=== PATIENT | female | born 1960 | race Caucasian/White ===

== ENCOUNTER → 2023-04-12 07:48 | Outpatient (REF) | payer OTHER, SELFPAY | LOC: HWWDC 07:48 | PROVIDERS: ATTENDING PHYSICIAN Obstetrics & Gynecology; FAMILY PHYSICIAN Family Medicine | DX: Z12.31 Encounter for screening mammogram for malignant neoplasm of breast (principal) | CPT/HCPCS: 77063; 77067 ==

== ENCOUNTER → 2023-08-07 14:55 | Outpatient (REF) | payer OTHER, SELFPAY | LOC: HWRAD 14:55 | PROVIDERS: ATTENDING PHYSICIAN Family Medicine | DX: E04.1 Nontoxic single thyroid nodule (principal) | CPT/HCPCS: 76536 ==

== ENCOUNTER 2023-09-18 06:40 | Day surgery (SDC) | payer OTHER, SELFPAY ==
[2023-09-13 08:44] LABS: Hematocrit 40.9 % (37.0-47.0); Hemoglobin 13.7 g/dL (12.0-16.0); Mean Corp Hgb Conc. 33.5 g/dL (33.0-37.0); Mean Corpuscular Hgb 32.3 pg (27.0-31.0); Mean Corpuscular Volume 96.5 fL (81.0-99.0); Mean Platelet Volume 11.3 fL (7.4-10.4); Platelet Count 185 10^3/uL (130-400); Red Blood Cell Count 4.24 10^6/uL (4.20-5.40); Red Cell Dist. Width 13.1 % (11.5-14.5); White Blood Cell Count 3.8 10^3/uL (4.8-10.8)
[2023-09-13 08:57] LABS: INR 0.97; PT 12.9 Sec (11.4-14.6)
[2023-09-13 08:58] LABS: APTT 27.3 Sec (23.4-35.0)
[2023-09-13 09:12] LABS: ALT (SGPT) 21 U/L (0-35); AST (SGOT) 26 U/L (14-36); Albumin 4.7 g/dl (3.5-5.0); Alkaline Phosphatase 70 U/L (38-126); Blood Urea Nitrogen 15 mg/dl (7-17); Calcium 9.7 mg/dl (8.4-10.2); Carbon Dioxide 26 mmol/L (22-30); Chloride 104 mmol/L (98-107); Glucose 91 mg/dl (70-99); Potassium 4.6 mmol/L (3.5-5.1); Sodium 138 mmol/L (135-145); Total Bilirubin 1.3 mg/dl (0.2-1.3); Total Protein 7.2 g/dl (6.3-8.2); eGFR > 60.00
[2023-09-13 10:14] VITALS: BMI 26.2
[2023-09-18] VITALS (11 sets, daily range): BP systolic 118–137; BP diastolic 63–91; BMI 26.2
[2023-09-18] MEDS: TYLENOL 1000 MG PO (09:33)
[2023-09-18] MEDS: NEURONTIN 300 MG PO (09:33)
[2023-09-18] MEDS: HEPARIN 5000 UNITS SC (09:34)
[2023-09-18] MEDS: NORMOSOL-R 1000 IV (09:36)
[2023-09-18] MEDS: DILAUDID 0.25 MG IV (11:44)
--- NOTE | 2023-09-18 13:15 | OR.RPT ---
Operative Report
Operative Report
PATIENT NAME: Carolann Mitchell
DATE OF : 1960
DATE OF OPERATION: September 18, 2023
PREOPERATIVE DIAGNOSIS: Left Thyroid Nodule Single - E041
POSTOPERATIVE DIAGNOSIS: Same
SURGEON: Jak Stallings M.D.
OPERATION: Left Total Thyroid Lobectomy - 76996
ANESTHESIA: GET
ESTIMATED BLOOD LOSS: 1 cc
DRAINS: None
SPECIMEN: left total thyroid lobe and isthmus
FINDINGS: left thyroid nodule
COMPLICATIONS:� None
PROCEDURE:
The patient was taken to the operating room and placed in the usual supine position. After adequate general endotracheal anesthesia was established, the patient�s neck was extended, prepped, and draped in the typical sterile fashion. A 4 cm
transcervical incision was made two fingerbreadths above the sternal notch. The skin incision was made with the #15 blade, which was taken through the skin into the subcutaneous tissue. The underlying platysma muscle was divided, and subplatysmal
flaps were created superiorly to the thyroid cartilage and inferiorly to the sternal notch. Strap muscles were identified and at the midline.
Attention was turned to the patient�s left thyroid lobe. The left thyroid lobe was mobilized medially. During this process, the left middle thyroid vein and inferior thyroid artery were dissected and ligated with Ligasure. Next, the left superior
pole was taken down by dissecting and transecting the superior pole vessels with a Ligasure. The left thyroid lobe was mobilized medially. During this process, the left recurrent laryngeal nerve was identified and preserved throughout its entire
course. The left superior parathyroid gland was identified and preserved. The left thyroid lobe with isthmus was resected off the trachea and sent to the pathology department.
After obtaining adequate hemostasis, the strap muscle was approximated with #3-0 Vicryl in a running fashion, and platysma muscles were reapproximated with #3-0 Vicryl in an interrupted fashion, and the skin was approximated with #4-0 Monocryl in a
running subcuticular fashion. Steri-strips and sterile dressings were placed. The patient tolerated the procedure well. The final instrument, needle, and sponge counts were correct.
== END 2023-09-18 13:15 | disposition home or self-care (01) ==
LOC: SDS 06:40
PROVIDERS: ATTENDING PHYSICIAN Surgery; FAMILY PHYSICIAN Family Medicine; OTHER PHYSICIAN Obstetrics & Gynecology
DX: E04.1 Nontoxic single thyroid nodule (principal)
CPT/HCPCS: 60220; 88307; 36415; 80053; 85027; 85610; 85730; 93005; C1776

== ENCOUNTER → 2024-05-02 10:33 | Outpatient (REF) | payer BC, SELFPAY | LOC: HWWDC 10:33 | PROVIDERS: ATTENDING PHYSICIAN Obstetrics & Gynecology; FAMILY PHYSICIAN Family Medicine | DX: Z12.31 Encounter for screening mammogram for malignant neoplasm of breast (principal) | CPT/HCPCS: 77063; 77067 ==